=== PATIENT | female | born 1990 | race Caucasian/White ===

== ENCOUNTER 2018-10-15 15:28 | Emergency (ER) | payer SELFPAY ==
[2018-10-15] MEDS ORDERED: Amoxicillin-Clav 875-125 mg Tab PO STA (16:09)
[2018-10-15 16:19] VITALS: BP 127/79; PULSE 82; RESP 18; TEMP 99.2; O2SAT 99; BMI 26.4
[2018-10-15] MEDS ORDERED: Bacitracin 500 Units/gm Oint Foilpak UD TOP ONE (16:20)
--- NOTE | 2018-10-15 16:25 | C.PDOC ---
History Of Present Illness 27-year-old female presents to the ED for evaluation of a dog bite sustained to her left forearm prior to arrival. Patient states that she was petting a puppy that was teething, on a leash, in [place], when it accidentally bit her. Patient states she asked the director software if "everything was okay," meaning did dog have all shots and the director software said yes, but exact details are no verified. Patient denies fever, chills, or any other injuries. Patient states her tetanus immunization status is up-to-date. Time Seen by Provider: 10/15/18 15:50 Chief Complaint (Nursing): Bite History Per: Patient History/Exam Limitations: no limitations Onset/Duration Of Symptoms: Hrs Current Symptoms Are (Timing): Still Present Location Of Injury: Left: Forearm Quality Of Symptoms: Painful Additional History Per: Patient - Animal Bite Description Of The Attack: Tried To Pet Animal Description Of The Animal: Family Pet Reports Animal Appears: Well Reports Animal's Immunization Status: UTD Past Medical History Reviewed: Historical Data, Nursing Documentation, Vital Signs Vital Signs: Last Vital Signs Temp 99.2 F 10/15/18 15:39 Pulse 82 10/15/18 15:39 Resp 18 10/15/18 15:39 BP 127/79 10/15/18 15:39 Pulse Ox 99 10/15/18 15:39 Primary Care Provider: Sandor Orozco - Medical History PMH: No Chronic Diseases Surgical History: No Surg Hx Family History: States: Unknown Family Hx - Social History Hx Alcohol Use: No Hx Substance Use: No - Immunization History Hx Tetanus Toxoid Vaccination: Yes Hx Influenza Vaccination: Yes Review Of Systems Constitutional: Negative for: Fever, Chills Skin: Positive for: Other (dog bite to left forearm ) Physical Exam - Physical Exam Appears: Non-toxic, No Acute Distress Skin: Other (shallow, 4mm excoriation appearing bite to left forearm with no surrounding erythema. no active bleeding ) Head: Atraumatic, Normacephalic Extremity: Normal ROM, Capillary Refill (less than 2 seconds ) Pulses: Left Radial: Normal, Right Radial: Normal Neurological/Psych: Normal Speech, Normal Cognition, Normal Sensation ED Course And Treatment O2 Sat by Pulse Oximetry: 99 (on RA ) Pulse Ox Interpretation: Normal Medical Decision Making Medical Decision Making: Tylenol PO and Augmentin PO given. Bacitracin TOP applied. pt with minor scratch/bite approx 4 mm, shallow, on left forearm with no surrounding erythema, no active bleeding. tdap up to date. [place] [address], pt asked director software if 'everything was ok" meaning did dog have all shots and director software said yes, but not verified. . highly unlikely to be rabies. wound care provided- copious irrigation with soap and water done in ed. pt give dose augmentin and tylenol in ed. 1648 pt not found in chair for discharge. I called patient and told her to return to ER for discharge papers and antibiotic prescription. pt saidshe would come back later or tomorrow. Disposition Counseled Patient/Family Regarding: Diagnosis, Need For Followup, Rx Given - Disposition Referrals: [facility] [Outside] [facility] [Outside] Disposition: HOME/ ROUTINE Disposition Time: 16:30 Condition: GOOD Additional Instructions: Keep wound clean and dry. Wash daily with soap and water, and then apply bacitracin. Take antibiotics until completed. Tylenol for pain if needed. Follow up with your doctor or return to ER if any signs of infection such as redness, swelling, discharge from wound or any other concerns. Prescriptions: Amoxicillin/Clavulanate [Augmentin 875 MG-125 MG] 1 tab PO BID #14 tab Instructions: Animal Bites (DC) Forms: [facility] (Sinhala), General Discharge Instructions - Clinical Impression Clinical Impression: Dog bite of left arm - PA / FORENSIC EXAMINER / Resident Statement MD/DO has reviewed & agrees with the documentation as recorded. - Scribe Statement The provider has reviewed the documentation as recorded by the Scribe (Shauna Zimmerman) All medical record entries made by the Scribe were at my direction and personally dictated by me. I have reviewed the chart and agree that the record accurately reflects my personal performance of the history, physical exam, medical decision making, and the department course for this patient. I have also personally directed, reviewed, and agree with the discharge instructions and disposition.
[2018-10-15] MEDS ORDERED: Bacitracin 500 Units/gm Oint Foilpak UD ONE (16:27)
== END 2018-10-15 16:54 | disposition home or self-care (01) ==
LOC: C.ER 15:28
DX: S51.852A Open bite of left forearm, initial encounter (principal); W54.0XXA Bitten by dog, initial encounter